=== PATIENT | female | born 1995 | race Two or more races ===

== ENCOUNTER 2021-04-13 16:50 | Emergency (ER) | payer OTHER ==
[~2021-04-13] VITALS: Ht 154.9 cm; Wt 59.9 kg
[2021-04-13] MEDS ORDERED: ZANAFLEX4 M1 (17:39)
[2021-04-13] MEDS ORDERED: ULTRAM50 MG (17:39)
[2021-04-13] MEDS ORDERED: DICLOFENAC 100 MG (17:42)
== END 2021-04-14 | disposition home or self-care (01) ==
LOC: ER 16:50
DX: M54.50 Low back pain, unspecified (principal); Q05.8 Sacral spina bifida without hydrocephalus; Z20.822 Contact with and (suspected) exposure to COVID-19